=== PATIENT | male | born 1945 | race Caucasian/White ===

== ENCOUNTER 2020-01-01 13:09 | Emergency (ER) | payer MEDICARE ==
[~2020-01-01] VITALS: Ht 172.7 cm; Wt 97.5 kg
--- NOTE | 2020-01-01 13:18 | NUR ---
PT IS IN ROOM #2B. DR MONET EVALUATED THE PT.
[2020-01-01] MEDS ORDERED: DOCUSATE SODIUM 100 MG/10 ML LIQUID UDC ONE (13:23)
[2020-01-01] MEDS: DOCUSATE SODIUM 100 MG/10 ML LIQUID UDC OT ONE (13:24)
--- NOTE | 2020-01-01 14:28 | NUR ---
PT WS EVALUATED BY DR MONET. PT's RIGHT EAR WAS IRRIGATED WITH NS 0.9%. PT TOLERATED TO PROCEDURE WITHOUT COMPLICATIONS. PT WAS D/C'd TO HOME. D/C INSTRUCTIONS GIVEN TO THE PT BY DR MONET.
[2020-01-01 14:41] VITALS: BP 146/88
== END 2020-01-01 14:42 | disposition home or self-care (01) ==
LOC: ER 13:09
DX: H61.21 Impacted cerumen, right ear (principal); J45.909 Unspecified asthma, uncomplicated; Z87.19 Personal history of other diseases of the digestive system
CPT/HCPCS: A4217; A4663